=== PATIENT | male | born 1975 | race Hispanic/Latino ===

== ENCOUNTER 2023-08-10 10:05 | Outpatient (CLI) | payer MEDICAID | END 2023-08-10 10:06 | disposition home or self-care (01) | LOC: CSHRAD 10:05 | PROVIDERS: ATTEND Nurse Practitioner | DX: R76.11 Nonspecific reaction to tuberculin skin test without active tuberculosis (principal); R91.8 Other nonspecific abnormal finding of lung field | CPT/HCPCS: 71046 ==